=== PATIENT | female | born 1985 | race Caucasian/White ===

== ENCOUNTER 2020-11-29 00:43 | Emergency (ER) | payer BC ==
[2020-11-29 01:18] LABS: HEMOGLOBIN 12.5 gm/dl (12.3-15.3); RED BLOOD COUNT 4.28 M/UL (4.00-5.10); WHITE BLOOD COUNT 16.6 K/UL (4.5-11.0)
[2020-11-29 01:37] LABS: BUN/CREATININE RATIO 28 (0-10)
[2020-11-29] MEDS ORDERED: ZOFRAN ODT 4 MG4 MG PO (06:47)
[2020-11-29] MEDS ORDERED: XYLOCAINE VISC100 ML EXT (06:47)
== END 2020-11-29 06:59 | disposition home or self-care (01) ==
LOC: ER1 00:43
PROVIDERS: Physician Assistant
DX: R10.9 Unspecified abdominal pain (principal); R11.2 Nausea with vomiting, unspecified
CPT/HCPCS: 80053; 81001; 83690; 84703; 85025; 87086; 99284; Q9967